=== PATIENT | female | born 1980 | race Caucasian/White ===

== ENCOUNTER 2020-07-12 04:25 | Day surgery (SDC) | payer OTHER ==
[2020-07-08 12:21] VITALS: BMI 17.5
[2020-07-12] MEDS ORDERED: IBUPROFEN 600 MG TABLET (FP) PO PRN (12:30)
[2020-07-12] MEDS ORDERED: IBUPROFEN 800 MG/8 ML IJ IVPB PRN (12:30)
[2020-07-12] MEDS ORDERED: ONDANSETRON 4 MG/2 ML VIAL IVPUSH PRN (12:30)
[2020-07-12] MEDS ORDERED: oxyCODONE HCL 5 MG TABLET PO PRN (12:30)
[2020-07-12] MEDS ORDERED: ELECTROLYTE-148 SOLN 1,000 ML IV SCH (12:30)
[2020-07-12] MEDS ORDERED: PROPOFOL 20 ML ONE (12:39)
[2020-07-12] MEDS ORDERED: SUCCINYLCHOLINE CHLORIDE 200 MG/10 ML SYRINGE ONE (12:39)
[2020-07-12] MEDS ORDERED: MIDAZOLAM HCL 2 MG/2 ML SINGLE DOSE VIAL ONE (12:39)
[2020-07-12] MEDS ORDERED: KETOROLAC TROMETHAMINE 30 MG/1 ML VIAL ONE (13:12)
[2020-07-12] MEDS ORDERED: BUPIVACAINE HCL/PF 0.5% (5MG/ML) 10 ML VIAL PNB ONE (13:27)
[2020-07-12] MEDS ORDERED: LACTATED RINGERS SOLUTION 1,000 ML IV SCH (13:45)
[2020-07-12 14:59] VITALS: TEMP 97.8
[2020-07-12 16:20] VITALS: BP 127/67; PULSE 88
== END 2020-07-12 16:05 | disposition home or self-care (01) ==
LOC: JASU-SURG 04:25
PROVIDERS: ATTEND Obstetrics & Gynecology
PROC: 0UB74ZZ Excision of Bilateral Fallopian Tubes, Percutaneous Endoscopic Approach (ICD-10-PCS; principal; 2020-07-12 12:00)
DX: Z30.2 Encounter for sterilization (principal)
CPT/HCPCS: 81025; 94760